=== PATIENT | female | born 1975 | race Caucasian/White ===

== ENCOUNTER 2021-05-11 13:14 | Emergency (ER) | payer BC ==
[2021-05-11] MEDS ORDERED: Zofran 4 MG/2 ML VIAL IV ONE (13:26)
[2021-05-11] MEDS ORDERED: MORPHINE SULFATE 4 MG INJ IV ONE (13:26)
[2021-05-11] MEDS ORDERED: BABY ASPIRIN 81 MG CHEW PO ONE (13:26)
[2021-05-11 13:32] VITALS: O2SAT 97
[2021-05-11] MEDS ORDERED: BABY ASPIRIN 81 MG CHEW ONE (13:32)
[2021-05-11] MEDS ORDERED: Zofran 4 MG/2 ML VIAL ONE (13:32)
[2021-05-11] MEDS ORDERED: MORPHINE SULFATE 4 MG INJ ONE (13:33)
[2021-05-11 13:57] LABS: Absolute Neutrophil Ct (ANC) 6.55 (1.4-6.9); BASOPHIL % 0.2 % (0.0-0.4); Basophil (Absolute #) 0.02 (0-0.4); Eosinophil % 1.8 % (0.00-5.0); Eosinophil (Absolute #) 0.16 (0-0.5); Hematocrit 40.4 % (35-47); Hemoglobin 13.2 gm/dl (12.0-16.0); Lymphocyte (Absolute #) 1.83 (1.0-4.6); Lymphocytes % 20.2 % (24.0-44.0); Mean Cell Volume 93.1 fl (78-100); Mean Corpuscular Hemoglobin 30.4 pg (26-32); Mean Corpuscular Hgb Concent. 32.7 g/dl (32-36); Mean Platelet Volume 10.3 fl (7.5-11.0); Monocytes % 5.5 % (0.0-12.0); Neutrophil % 72.3 % (36.0-66.0); Platelet Count 364 K/mm3 (150-450); Red Blood Count 4.34 M/mm3 (4.1-5.4); Red Cell Distribution Width 14.1 % (11.5-14.0); White Blood Count 9.1 K/mm3 (4.0-10.5)
[2021-05-11 14:11] LABS: ALBUMIN 4.2 g/dL (3.5-5.0); ALKALINE PHOSPHATASE 88 U/L (38-126); ANION GAP 13.7 MEQ/L (5-15); BLOOD UREA NITROGEN 6 mg/dL (7-17); CHLORIDE 108 mmol/L (98-107); Carbon Dioxide 18 mmol/L (22-30); Creatinine 1 0.48 mg/dL (0.52-1.04); EST GLOMERULAR FILTRATION RATE > 60.0 ML/MIN; Glucose 298 mg/dL (74-106); NT PRO BNP 87.7 pg/mL (0-450); Potassium 3.7 mmol/L (3.5-5.1); SGOT/AST 23 U/L (14-36); SGPT/ALT 11 U/L (0-35); SODIUM 136 mmol/L (137-145); Total Protein 7.2 g/dL (6.3-8.2)
[2021-05-11] MEDS ORDERED: NITRO-BID 2% UD PACKETS ONE (14:26)
[2021-05-11] MEDS ORDERED: NITRO-BID 2% UD PACKETS TOP ONE (14:27)
[2021-05-11] MEDS ORDERED: Heparin 5000 UNITS/0.5 ML (HIGH RISK MED) IV ONE (14:55)
--- NOTE | 2021-05-11 14:55 | ERPHSYRPT ---
- History of Present Illness Time Seen by Provider: 05/11/21 13:14 Historian: patient Exam Limitations: no limitations Patient Subjective Stated Complaint: pt here for chest pain to center of chest radiating to jaw,and through to back, pt was at work when it started at 0800. Triage Nursing Assessment: pt alert, walked in, resp easy, skin w/d/p. face mask in place, no edema noted, Physician History: 45 years old female with history of tobacco abuse presented in the ER with chief complaint of substernal/central chest pain started around 8 AM while she was at work, continuous, moderate intensity dull aching pressure with radiation to left jaw and some to the back without associated palpitations or shortness of breath. Denies any significant aggravating or relieving factors. No associated nausea or vomiting. Reports having similar chest pain almost a week ago but did not seek any medical attention. No history of coronary artery disease but does have a family history of CAD. Timing/Duration: today, constant, gradual onset, worse Activities at Onset: activity Quality: dullness, pressure Location: substernal, central Chest Pain Radiation: jaw Severity of Pain-Max: moderate Severity of Pain-Current: moderate Modifying Factors: Improves With: nothing Associated Symptoms: denies symptoms Prior Chest Pain/Cardiac Workup: no prior cardiac workup Nitro Today/Relief: no nitro taken today Aspirin Treatment Today: no aspirin today Allergies/Adverse Reactions: No Known Drug Allergies Allergy (Unverified 05/11/21 13:32) Home Medications: No Reportable Medications [No Reported Medications] 05/11/21 [History] Hx Tetanus, Diphtheria Vaccination/Date Given: No Hx Influenza Vaccination/Date Given: No Hx Pneumococcal Vaccination/Date Given: No Immunizations Up to Date: Yes Travel Risk - International Travel Have you traveled outside of the country in past 3 weeks: No - Coronavirus Screening Are you exhibiting any of the following symptoms?: No Close contact with a COVID-19 positive Pt in past 14-21 Days: No - Vaccine Status Have you recieved a Covid-19 vaccination: No - Review of Systems Constitutional: No Symptoms Eyes: No Symptoms Ears, Nose, & Throat: No Symptoms Respiratory: No Symptoms Cardiac: Chest Pain Abdominal/Gastrointestinal: No Symptoms Genitourinary Symptoms: No Symptoms Musculoskeletal: No Symptoms Skin: No Symptoms Neurological: No Symptoms Psychological: No Symptoms Endocrine: No Symptoms Hematologic/Lymphatic: No Symptoms Immunological/Allergic: No Symptoms - Past Medical History Pertinent Past Medical History: No - Past Surgical History Past Surgical History: Yes Female Surgical History: Section - Social History Smoking Status: Current every day smoker Exposure to second hand smoke: Yes Drug Use: none Patient Lives Alone: Yes - Female History Hx Last Menstrual Period: nov Hx Now: (unkn) - Nursing Vital Signs Nursing Vital Signs: Initial Vital Signs Temperature 97.0 F 05/11/21 13:18 Pulse Rate 79 05/11/21 13:18 Respiratory Rate 18 05/11/21 13:18 O2 Sat by Pulse Oximetry 97 05/11/21 13:18 Pain Scale Pain Intensity 6 - Physical Exam General Appearance: no apparent distress, alert Eye Exam: PERRL/EOMI, eyes nml inspection Ears, Nose, Throat Exam: normal ENT inspection, TMs normal, pharynx normal Neck Exam: normal inspection, non-tender, supple, full range of motion Respiratory Exam: normal breath sounds, lungs clear Cardiovascular Exam: regular rate/rhythm, normal heart sounds Gastrointestinal/Abdomen Exam: soft, normal bowel sounds, No tenderness Back Exam: normal inspection, normal range of motion Extremity Exam: normal inspection, normal range of motion Neurologic Exam: alert, oriented x 3, cooperative, 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 Rate 69, sinus rhythm, normal axis, ST elevation in lateral leads and depression in anteroseptal) Ordered Tests: Active Orders 24 hr Category Date Time Status Elementary Secretary STAT Care 05/11/21 13:27 Active EKG-ER Only STAT Care 05/11/21 13:26 Active IV Insertion STAT Care 05/11/21 13:26 Active CHEST 1 VIEW (PORTABLE) Stat Exams 05/11/21 13:27 Taken CBC W DIFF Stat Lab 05/11/21 13:37 Completed CMP Stat Lab 05/11/21 13:37 Completed D-DIMER QUANTITATIVE Stat Lab 05/11/21 13:37 Completed NT PRO BNP Stat Lab 05/11/21 13:37 Completed TROPONIN Q3H Lab 05/11/21 13:37 Completed TROPONIN Q3H Lab 05/11/21 16:30 Ordered TROPONIN Q3H Lab 05/11/21 19:30 Ordered TROPONIN Q3H Lab 05/11/21 22:30 Ordered TROPONIN Q3H Lab 05/12/21 01:30 Ordered Medication Summary Discontinued Medications Generic Name Dose Route Start Last Admin Trade Name Sheba PRN Reason Stop Dose Admin Aspirin 324 mg 05/11/21 13:26 05/11/21 13:40 Aspirin 81 Mg Tab.Chew PO 05/11/21 13:27 324 mg STAT ONE Administration Aspirin Confirm 05/11/21 13:32 Aspirin 81 Mg Tab.Chew Administered 05/11/21 13:33 Dose 324 mg .ROUTE .STK-MED ONE Morphine Sulfate 4 mg 05/11/21 13:26 05/11/21 13:42 Morphine Sulfate 4 Mg/Ml Injection IV 05/11/21 13:27 4 mg STAT ONE Administration Morphine Sulfate Confirm 05/11/21 13:33 Morphine Sulfate 4 Mg/Ml Injection Administered 05/11/21 13:34 Dose 4 mg .ROUTE .STK-MED ONE Nitroglycerin Confirm 05/11/21 14:26 Nitroglycerin 1 Gm Packet Administered 05/11/21 14:27 Dose 1 gm .ROUTE .STK-MED ONE Nitroglycerin 1 gm 05/11/21 14:27 05/11/21 14:29 Nitroglycerin 1 Gm Packet TOP 05/11/21 14:28 1 gm STAT ONE Administration Ondansetron HCl 4 mg 05/11/21 13:26 05/11/21 13:40 Ondansetron Hcl 4 Mg/2 Ml Vial IV 05/11/21 13:27 4 mg STAT ONE Administration Ondansetron HCl Confirm 05/11/21 13:32 Ondansetron Hcl 4 Mg/2 Ml Vial Administered 05/11/21 13:33 Dose 4 mg .ROUTE .STK-MED ONE Lab/Rad Data: Laboratory Result Diagrams 05/11/21 13:37 05/11/21 13:37 Laboratory Results 05/11/21 05/11/21 05/11/21 Range/Units 13:37 13:37 13:37 WBC (4.0-10.5) K/mm3 RBC (4.1-5.4) M/mm3 Hgb (12.0-16.0) gm/dl Hct (35-47) % MCV (78-100) fl MCH (26-32) pg MCHC (32-36) g/dl RDW (11.5-14.0) % Plt Count (150-450) K/mm3 MPV (7.5-11.0) fl Gran % (36.0-66.0) % Eos # (Auto) (0-0.5) Absolute Lymphs (auto) (1.0-4.6) Absolute Monos (auto) (0.0-1.3) Lymphocytes % (24.0-44.0) % Monocytes % (0.0-12.0) % Eosinophils % (0.00-5.0) % Basophils % (0.0-0.4) % Absolute Granulocytes (1.4-6.9) Basophils # (0-0.4) D-Dimer 407 (215-500) ng/mL Sodium 136 L (137-145) mmol/L Potassium 3.7 (3.5-5.1) mmol/L Chloride 108 H (98-107) mmol/L Carbon Dioxide 18 L (22-30) mmol/L Anion Gap 13.7 (5-15) MEQ/L BUN 6 L (7-17) mg/dL Creatinine 0.48 L (0.52-1.04) mg/dL Estimated GFR > 60.0 ML/MIN Glucose 298 H (74-106) mg/dL Calcium 9.0 (8.4-10.2) mg/dL Total Bilirubin 0.40 (0.2-1.3) mg/dL AST 23 (14-36) U/L ALT 11 (0-35) U/L Alkaline Phosphatase 88 (38-126) U/L Troponin I 0.373 H* (0.000-0.034) ng/mL NT-Pro-B Natriuret Pep 87.7 (0-450) pg/mL Serum Total Protein 7.2 (6.3-8.2) g/dL Albumin 4.2 (3.5-5.0) g/dL 05/11/21 Range/Units 13:37 WBC 9.1 (4.0-10.5) K/mm3 RBC 4.34 (4.1-5.4) M/mm3 Hgb 13.2 (12.0-16.0) gm/dl Hct 40.4 (35-47) % MCV 93.1 (78-100) fl MCH 30.4 (26-32) pg MCHC 32.7 (32-36) g/dl RDW 14.1 H (11.5-14.0) % Plt Count 364 (150-450) K/mm3 MPV 10.3 (7.5-11.0) fl Gran % 72.3 H (36.0-66.0) % Eos # (Auto) 0.16 (0-0.5) Absolute Lymphs (auto) 1.83 (1.0-4.6) Absolute Monos (auto) 0.50 (0.0-1.3) Lymphocytes % 20.2 L (24.0-44.0) % Monocytes % 5.5 (0.0-12.0) % Eosinophils % 1.8 (0.00-5.0) % Basophils % 0.2 (0.0-0.4) % Absolute Granulocytes 6.55 (1.4-6.9) Basophils # 0.02 (0-0.4) D-Dimer (215-500) ng/mL Sodium (137-145) mmol/L Potassium (3.5-5.1) mmol/L Chloride (98-107) mmol/L Carbon Dioxide (22-30) mmol/L Anion Gap (5-15) MEQ/L BUN (7-17) mg/dL Creatinine (0.52-1.04) mg/dL Estimated GFR ML/MIN Glucose (74-106) mg/dL Calcium (8.4-10.2) mg/dL Total Bilirubin (0.2-1.3) mg/dL AST (14-36) U/L ALT (0-35) U/L Alkaline Phosphatase (38-126) U/L Troponin I (0.000-0.034) ng/mL NT-Pro-B Natriuret Pep (0-450) pg/mL Serum Total Protein (6.3-8.2) g/dL Albumin (3.5-5.0) g/dL - Progress Progress: improved Air Movement: good Progress Note: 05/11/21 14:53 45-year-old is evaluated for chest pain since morning. Initial EKG did not show any acute ST elevation. She is given aspirin and morphine for symptomatic relief but her pain is still there. Repeat EKG showed some ST elevations in the lateral leads and initial troponin of 0.37. She is given Nitropaste and nitro sublingual along with another dose of morphine. Chest x-ray did not show any acute process reviewed by me, official report is pending. I believe patient has been having evolving NH. I have discussed with Dr. Rose at [facility] ER, she will be given a bolus dose of heparin and is accepted for transfer. Blood Culture(s) Obtained: No Antibiotics given: No Discussed with Dr.: Other (Dr. Rose [facility]) Will see patient in: ED Counseled pt/family regarding: lab results, diagnosis, rad results, smoking cessation - Departure Departure Disposition: Transfer Clinical Impression: ST elevation NH (STEMI) Qualifiers: Involved coronary artery: unspecified coronary artery Qualified Code(s): I21.3 - ST elevation (STEMI) myocardial infarction of unspecified site Condition: Stable Critical Care Time: Yes Critical Care Time(excluding separately billable procedures): Critical 30-74 mins Referrals: EDUARDO VENEGAS [Primary Care Provider] - Follow up/PCP as directed
[2021-05-11] MEDS ORDERED: Heparin 5000 UNITS/0.5 ML (HIGH RISK MED) ONE (14:58)
[2021-05-11 16:15] VITALS: BP 156/102; PULSE 99
--- NOTE | 2021-05-11 19:45 | XRAY ---
Indication: Chest pain. Comparison: None Portable apical lordotic chest demonstrates normal heart and lungs. Bony thorax intact.
== END 2021-05-11 15:00 | disposition short-term general hospital (02) ==
LOC: ED 13:14
DX: I21.3 ST elevation (STEMI) myocardial infarction of unspecified site (principal); Z72.0 Tobacco use
CPT/HCPCS: 36000; 36415; 71045; 80053; 83880; 84484; 85025; 85379; 93005; 93041; 96374; 96375; 99285; 99291; J1644; J2270; J2405; A9270-GY

== ENCOUNTER 2023-03-04 08:04 | Day surgery (SDC) | payer BC ==
[2023-03-04] MEDS ORDERED: Sodium Chloride 0.9(Preservative Free) 10 ML IJ ONE (08:05)
[2023-03-04] MEDS ORDERED: Depo-Medrol 40 MG/ML IM ONE (08:05)
[2023-03-04 08:17] LABS: HCG URINE TEST NEGATIVE (NEGATIVE)
[2023-03-04] MEDS ORDERED: Versed 2 MG/2 ML Injection ONE (09:09)
[2023-03-04] MEDS ORDERED: DIPRIVAN 200 MG/20 ML IV ONE (09:09)
[2023-03-04] MEDS ORDERED: Lactated Ringers 1,000 ML IV ONE (09:28)
--- NOTE | 2023-03-04 12:06 | XRAY ---
Indication: Right L4-S1 transforaminal JOSTIN. Intraoperative fluoroscopy provided for 32 seconds. 5 digital spot image submitted for interpretation demonstrates posterior needle tips projecting over the expected right L4 and L5 nerve roots. Small amount of contrast injected for needle tip placement. Correlate with intraoperative findings/report.
--- NOTE | 2023-03-04 12:10 | XRAY ---
32 seconds of fluoroscopy was used in surgery for a right L4-S1 transforaminal JOSTIN.
== END 2023-03-04 09:40 | disposition home or self-care (01) ==
LOC: SDC-PAIN 08:04
PROVIDERS: ATTEND Psychiatry & Neurology Pain Medicine
DX: M54.16 Radiculopathy, lumbar region (principal); E11.9 Type 2 diabetes mellitus without complications; Z79.899 Other long term (current) drug therapy
CPT/HCPCS: 64483; 64484; 72100; 77003; 81025; 82947; J1030; J2250; J2704; Q9966